=== PATIENT | male | born 1990 | race Two or more races ===

== ENCOUNTER 2018-08-17 02:36 | Emergency (ER) | payer SELFPAY ==
[~2018-08-17] VITALS: Ht 193 cm; Wt 99.0 kg
[2018-08-17] MEDS ORDERED: TETANUS, DIPHTHERIA, PERTUSSIS VAC/PF 0.5ML (>7YR OLD) IM ONE (04:00)
[2018-08-17] MEDS ORDERED: LIDOCAINE HCL/EPINEPHRINE 1%-EPI 1:100,000 30 ML VIAL INFIL ONE (04:30)
[2018-08-17 04:36] LABS: HEMATOCRIT 42.9 % (42.0-52.0); HEMOGLOBIN 14.3 g/dL (14.0-18.0); MEAN CORPUSCULAR HEMOGLOBIN 32.3 pg (28.0-32.0); MEAN CORPUSCULAR VOLUME 96.7 fL (80.0-94.0); PLATELET 200 x1000/uL (130-400); RED BLOOD CELL COUNT 4.44 mill/uL (4.7-6.1)
[2018-08-17 04:41] LABS: CHLORIDE 102 mEq/L (98-107)
[2018-08-17 06:29] VITALS: BP 135/81
[2018-08-17] MEDS ORDERED: IOHEXOL-300 100 ML BOTTLE ONE (07:18)
== END 2018-08-17 06:32 | disposition home or self-care (01) ==
LOC: ER 03:00
DX: S01.81XA Laceration without foreign body of other part of head, initial encounter (principal); F12.10 Cannabis abuse, uncomplicated; V49.49XA Driver injured in collision with other motor vehicles in traffic accident, initial encounter; Y93.89 Activity, other specified; Y92.89 Other specified places as the place of occurrence of the external cause; Y99.8 Other external cause status; Z88.0 Allergy status to penicillin
CPT/HCPCS: 12015; 36415; 70450; 71045; 74178; 80053; 85027; 86850; 86900; 86901; 90471; 90715; 99284; Q9967

== ENCOUNTER 2018-08-26 20:14 | Emergency (ER) | payer SELFPAY ==
[~2018-08-26] VITALS: Ht 185.4 cm; Wt 100.0 kg
[2018-08-27 02:32] VITALS: BP 144/79
== END 2018-08-27 02:35 | disposition home or self-care (01) ==
LOC: ER 20:14
DX: S01.81XD Laceration without foreign body of other part of head, subsequent encounter (principal); F12.10 Cannabis abuse, uncomplicated; F17.200 Nicotine dependence, unspecified, uncomplicated; Z48.02 Encounter for removal of sutures; Z88.0 Allergy status to penicillin; X58.XXXD Exposure to other specified factors, subsequent encounter
CPT/HCPCS: 99281